=== PATIENT | female | born 1995 | race Hispanic/Latino ===

== ENCOUNTER 2021-10-04 22:40 | Emergency (ER) | payer MEDICAID, SELFPAY ==
[2021-10-05] MEDS ORDERED: Acetaminophen 500 MG TAB ONE (00:10)
== END 2021-10-05 01:04 | disposition home or self-care (01) ==
LOC: ERS 22:40
DX: S93.602A Unspecified sprain of left foot, initial encounter (principal); F17.290 Nicotine dependence, other tobacco product, uncomplicated

== ENCOUNTER 2022-06-15 13:40 | Emergency (ER) | payer MEDICAID, SELFPAY ==
[2022-06-15] MEDS ORDERED: Ibuprofen 800 MG TAB ONE (15:01)
== END 2022-06-15 15:15 | disposition home or self-care (01) ==
LOC: ERS 13:40
DX: S82.62XA Displaced fracture of lateral malleolus of left fibula, initial encounter for closed fracture (principal); W17.2XXA Fall into hole, initial encounter; F17.290 Nicotine dependence, other tobacco product, uncomplicated
CPT/HCPCS: 29515

== ENCOUNTER 2025-06-15 14:15 | Emergency (ER) | payer SELFPAY ==
[2025-06-15 15:44] LABS: Bacteria/HPF None Seen HPF (None Seen); CAUTI Indications for Culture Pelvic or flank pain; Glucose, Urine (Dipstick) Greater than 1000 mg/dL (Negative); Leukocyte Negative Leu/uL (Negative); Protein, Urine (Dipstick) Negative (Neg-Trace); RBC/HPF 0-3 HPF (0-3); Specific Gravity, Urine 1.033 (1.002-1.036); WBC/HPF 0-3 HPF (0-3)
[2025-06-15 15:46] LABS: #Basophils 0.03 10x3/uL (0.0-0.2); #Eosinophils 0.15 10x3/uL (0.0-0.7); #Monocytes 0.43 10x3/uL (0.11-0.59); #Neutrophils 6.06 10x3/uL (1.40-6.50); %Basophils 0.3 % (0.0-1.0); %Eosinophils 1.7 % (0.0-10.0); %Lymphocytes 24.5 % (21.0-51.0); %Monocytes 4.8 % (0.0-10.0); %Neutrophils 68.4 % (42.0-75.0); Hematocrit 36.5 % (36.0-47.0); Hemoglobin 12.0 g/dL (12.0-16.0); Mean Corpuscular Hemoglobin 25.9 pg (27.0-31.0); Mean Corpuscular Volume 78.7 fL (78.0-98.0); Platelet Count 212 10x3/uL (130-400); Red Blood Cell (RBC) Count 4.64 mill/uL (4.20-5.40); White Blood Cell (WBC) Count 8.88 10x3/uL (4.8-10.8)
[2025-06-15 15:46] LABS: Urine Culture Reflex No No
[2025-06-15 16:08] LABS: ALT (SGPT) 49 U/L (Less than 34); AST (SGOT) 59 U/L (11-34); Albumin 4.1 g/dL (3.1-4.5); Alkaline Phosphatase 81 U/L (40-110); Anion Gap 15 mmol/L (10-20); BUN (Urea Nitrogen) 9 mg/dL (7.0-18.7); Bilirubin, Total 0.4 mg/dL (0.3-1.2); Calc. Creatinine Clearance 0 mL/min (70-130); Calcium 9.4 mg/dL (7.8-10.44); Carbon Dioxide 20 mmol/L (22-29); Chloride 103 mmol/L (98-107); Globulin 3.9 g/dL (2.4-3.5); Glucose 277 mg/dL (70-105); Potassium 4.2 mmol/L (3.5-5.1); Sodium 134 mmol/L (136-145)
[2025-06-15 16:13] LABS: BHCG - Serum POSITIVE (NEGATIVE); Pregs Control Background? CLEAR/WHITE (CLR/WHITE); Pregs Control Bar Appear? YES (CONTROL BAR)
== END 2025-06-15 20:13 | disposition home or self-care (01) ==
LOC: ERS 14:15
DX: Z33.1 Pregnant state, incidental (principal); E11.9 Type 2 diabetes mellitus without complications; I10 Essential (primary) hypertension; Z79.84 Long term (current) use of oral hypoglycemic drugs; Z79.4 Long term (current) use of insulin
CPT/HCPCS: 36416; 76856; 80053; 81001; 84702; 84703; 85025; 96360

== ENCOUNTER 2025-06-18 10:14 | Emergency (ER) | payer SELFPAY | END 2025-06-18 12:10 | disposition home or self-care (01) | LOC: ERS 10:14 | DX: Z32.01 Encounter for pregnancy test, result positive (principal); E11.9 Type 2 diabetes mellitus without complications; I10 Essential (primary) hypertension | CPT/HCPCS: 36415; 84702; 99283 ==

== ENCOUNTER 2025-07-25 17:42 | Emergency (ER) | payer OTHER, SELFPAY ==
[2025-07-25] MEDS ORDERED: Ketorolac Tromethamine 30 MG (1 mL) VIAL ONE (18:05)
[2025-07-25] MEDS ORDERED: HYDROcodone/Acetaminophen 10/325 mg Tablet ONE (19:33)
[2025-07-25 20:35] LABS: #Basophils 0.03 10x3/uL (0.0-0.2); #Eosinophils 0.12 10x3/uL (0.0-0.7); #Monocytes 0.51 10x3/uL (0.11-0.59); #Neutrophils 6.07 10x3/uL (1.40-6.50); %Basophils 0.3 % (0.0-1.0); %Eosinophils 1.3 % (0.0-10.0); %Lymphocytes 25.0 % (21.0-51.0); %Monocytes 5.7 % (0.0-10.0); %Neutrophils 67.5 % (42.0-75.0); Hematocrit 36.0 % (36.0-47.0); Hemoglobin 11.3 g/dL (12.0-16.0); Mean Corpuscular Hemoglobin 25.5 pg (27.0-31.0); Mean Corpuscular Volume 81.3 fL (78.0-98.0); Platelet Count 239 10x3/uL (130-400); Red Blood Cell (RBC) Count 4.43 mill/uL (4.20-5.40); White Blood Cell (WBC) Count 9.00 10x3/uL (4.8-10.8)
[2025-07-25 20:50] LABS: Bacteria/HPF None Seen HPF (None Seen); CAUTI Indications for Culture Acute Hematuria; Glucose, Urine (Dipstick) Greater than 1000 mg/dL (Negative); Leukocyte 75 Leu/uL (Negative); Protein, Urine (Dipstick) 50 mg/dL (Neg-Trace); RBC/HPF Greater than 50 HPF (0-3); Specific Gravity, Urine 1.036 (1.002-1.036); WBC/HPF Greater than 50 HPF (0-3)
[2025-07-25 20:51] LABS: ALT (SGPT) 71 U/L (Less than 34); AST (SGOT) 45 U/L (11-34); Albumin 4.1 g/dL (3.1-4.5); Alkaline Phosphatase 96 U/L (40-110); Anion Gap 18 mmol/L (10-20); BUN (Urea Nitrogen) 11 mg/dL (7.0-18.7); Bilirubin, Total 0.4 mg/dL (0.3-1.2); Calc. Creatinine Clearance 0 mL/min (70-130); Calcium 9.0 mg/dL (7.8-10.44); Carbon Dioxide 21 mmol/L (22-29); Chloride 106 mmol/L (98-107); Globulin 3.7 g/dL (2.4-3.5); Glucose 257 mg/dL (70-105); Potassium 4.1 mmol/L (3.5-5.1); Sodium 141 mmol/L (136-145)
[2025-07-25 21:02] LABS: Urine Culture Reflex Yes Yes
[2025-07-25] MEDS ORDERED: cefTRIAXone (ROCEPHIN) 1 GM VIAL ONE (21:49)
[2025-07-27 04:15] LABS: GC by PCR, Vaginal Swab *Indeterminate (NotDetected)
== END 2025-07-25 22:08 | disposition home or self-care (01) ==
LOC: ERS 17:42
DX: N39.0 Urinary tract infection, site not specified (principal); I10 Essential (primary) hypertension; E11.9 Type 2 diabetes mellitus without complications
CPT/HCPCS: 76856; 80053; 81001; 85025; 87086; 87480; 87510; 87591; 87660; 96374; 96375; J0696; J1885